=== PATIENT | female | born 1960 | race Caucasian/White ===

== ENCOUNTER → 2021-09-30 | Outpatient (CLI) | payer MEDICARE, OTHER ==
--- NOTE | 2021-09-30 06:44 | MR ---
EXAMINATION TYPE: MR shoulder RT wo con DATE OF EXAM: 09/30/2021 COMPARISON: None. HISTORY: Pain in right shoulder , Osteoarthritis TECHNIQUE: Multiplanar, multisequence imaging of the right shoulder is performed without contrast. FINDINGS: Rotator Cuff: Some increased signal in the distal supraspinatus and infraspinatus tendons. Short segm ent tearing at articular surface supraspinatus tendon measures 6 mm AP diameter sagittal image 21 and anterior fibers of the infraspinatus tendon measures 5 mm AP diameter sagittal image 22. Adjacent jean bchondral cystic change in the humeral head. Subscapularis tendon is thickened with increased signal. Rotator cuff shows mild/moderate atrophy of the subscapularis muscle bulk. Acromioclavicular Joint: Moderate to severe narrowing. Moderate capsular hypertrophy. Preservation of underlying fat plane. Slight type II downsloping acromion with possible underlying fat coronal image 14 and sagittal image 17. Glenohumeral Joint: Small to moderate joint effusion with mild/moderate narrowing. No significant spu rring Labrum: The superior labrum has increased signal on coronal image 11, degenerative tearing is present . Biceps Tendon: The long head of biceps is in normal location within bicipital groove. Long segment in creased vertical signal along the extracapsular portion is present. Bone marrow signal: Hill-Sachs type deformity with loss of spherical shape. There is subchondral cyst ic change throughout the humeral head. Other: No additional significant abnormality is appreciated. IMPRESSION: 1. Tendinosis and partial tearing of the supraspinatus and infraspinatus tendons. Tendinopathy of the subscapularis with muscular atrophy. 2. Type II downsloping acromion with underlying impingement suspected, correlate clinically. 3. Moderate to borderline severe degenerative changes as detailed above. Degenerative tearing superio r labrum. Long segment tendinosis of the biceps tendon.
== END | disposition home or self-care (01) ==
LOC: RADMRIMAIN 05:48
PROVIDERS: ATTEND Orthopaedic Surgery
DX: M75.111 Incomplete rotator cuff tear or rupture of right shoulder, not specified as traumatic (principal); M62.511 Muscle wasting and atrophy, not elsewhere classified, right shoulder; M75.81 Other shoulder lesions, right shoulder; M19.011 Primary osteoarthritis, right shoulder

== ENCOUNTER → 2021-10-06 | Outpatient (CLI) | payer MEDICARE, OTHER ==
--- NOTE | 2021-10-10 08:59 | MM ---
Reason for exam: screening (asymptomatic). Last mammogram was performed 3 years and 1 month ago. History: Patient is postmenopausal and history of other cancer. Family history of breast cancer in sister at age 64. Physical Findings: A clinical breast exam by your physician is recommended on an annual basis and results should be correlated with mammographic findings. MG 3D Screening Mammo W/Cad Bilateral CC and MLO view(s) were taken. Prior study comparison: September 19, 2018, mammogram, performed at [facility]. There are scattered fibroglandular densities. There is chronic nodularity bilaterally. Benign bilateral oil cyst calcifications. No significant changes when compared with prior studies. ASSESSMENT: Negative, BI-RAD 1 RECOMMENDATION: Routine screening mammogram of both breasts in 1 year.
== END | disposition home or self-care (01) ==
LOC: RADMAMWWP 08:50
PROVIDERS: ATTEND Family Medicine
DX: Z12.31 Encounter for screening mammogram for malignant neoplasm of breast (principal); Z78.0 Asymptomatic menopausal state; Z80.3 Family history of malignant neoplasm of breast
CPT/HCPCS: 77063; 77067

== ENCOUNTER → 2021-10-18 | Outpatient (CLI) | payer MEDICARE, OTHER ==
--- NOTE | 2021-10-18 13:45 | BD ---
EXAMINATION TYPE: Axial Bone Density DATE OF EXAM: 10/18/2021 COMPARISON: NONE CLINICAL HISTORY: asymptomatic menopausal Z 78.0 Height: 5'1 Weight: 154 FRAX RISK QUESTIONS: Secondary Osteoporosis: 3. Menopause before 45: y Current Tobacco Use: y RISK FACTORS HISTORY OF: Diet low in dairy products/other sources of calcium: y Postmenopausal woman: y MEDICATIONS: Additional Medications: back pain, reflux med, anxiety, pain meds Additional History: skin cancer, 2019 EXAM MEASUREMENTS: Bone mineral densitometry was performed using the [employer] System. Bone mineral density as measured about the Lumbar spine is: ----- L1-L4(G/cm2): 0.974 T Score Values are as follows: ----- L2:-1.8 ----- L3: -1.3 ----- L4: -2.0 ----- L1-L4: -1.7 Bone mineral density about the R hip (g/cm2): 0.793 Bone mineral density about the L hip (g/cm2): 0.797 T Score values are as follows: -----R Neck: -1.8 -----L Neck: -1.7 -----R Total: -1.2 -----L Total: -1.2 IMPRESSION: Osteopenia (T Score between -2.5 and -1). There is slightly increased risk of fracture and the patient may be considered for treatment. Re-Screen 2-5 years. NOTE: T-SCORE=SD OF THE YOUNG ADULT MEAN.
== END | disposition home or self-care (01) ==
LOC: RADBDWWP 10:16
PROVIDERS: ATTEND Family Medicine
DX: M85.89 Other specified disorders of bone density and structure, multiple sites (principal); Z78.0 Asymptomatic menopausal state
CPT/HCPCS: 77080

== ENCOUNTER → 2021-10-20 | Outpatient (CLI) | payer MEDICARE, OTHER ==
--- NOTE | 2021-10-20 10:56 | CTL ---
EXAMINATION TYPE: CT Low Dose Lung DATE OF EXAM ORDERED: 10/20/2021 HISTORY: Long-term tobacco use. Lung cancer screening CT DLP: 92.[address] CTDI: 2.7 mGy Automated exposure control for dose reduction was used. SCREENING VISIT: Baseline COMPARISON: None TECHNIQUE: Low dose computed tomography scan was performed through the chest at 1 mm thick sections a nd reconstructed images in multiple planes at 1 mm and [address] DIAGNOSTIC QUALITY: Satisfactory FINDINGS: LUNG NODULES: Present, detailed below: There is 3 mm peripheral right lower lobe nodule axial image 168. Scattered small nodules are present . There is 9.0 x 6.9 mm peripheral left lower lobe nodule axial image 211. There is 5.7 x 3.3 mm left upper lobe nodule axial image 112 LUNGS: COPD: Severity: [id number] Fibrosis: Severity: None Lymph nodes: No greater than 1 cm lymph nodes Other findings: None RIGHT PLEURAL SPACE: Effusion: None Calcification: None Thickening: None Pneumothorax: None LEFT PLEURAL SPACE: Effusion: None Calcification: None Thickening: None Pneumothorax: None HEART: Heart Size: Normal Coronary Calcification: Mild Pericardial Effusion: None OTHER FINDINGS: Upper abdomen: None Bony thorax: Slight scoliotic curvature Supraclavicular region: None Other: None IMPRESSION: [id number] emphysematous changes with scattered small nodules up to 9.5 x 6.[address] LUNG RAD AND CT CHEST RECOMMENDATION: Lung-Rad 4A Suspicious: Follow-up 3 month LDCT or PET/CT may be used when there is a > 8 mm solid component. S Modifier (other clinically significant findings): None
== END | disposition home or self-care (01) ==
LOC: RADCTMAIN 09:09
PROVIDERS: ATTEND Family Medicine
DX: Z12.2 Encounter for screening for malignant neoplasm of respiratory organs (principal); J43.9 Emphysema, unspecified; R91.8 Other nonspecific abnormal finding of lung field; Z87.891 Personal history of nicotine dependence
CPT/HCPCS: 71271

== ENCOUNTER 2021-11-22 07:53 | Day surgery (SDC) | payer MEDICARE, OTHER ==
[2021-11-18 11:24] VITALS: BMI 27.4
[~2021-11-22 07:53] MED LIST: LACTATED RINGERS 1,000 ML IV SCH
[2021-11-22 08:21] VITALS: TEMP 96.2
[2021-11-22] MEDS ORDERED: PROPOFOL 10 MG/ML 20 ML VIAL IV ONE (09:36)
--- NOTE | 2021-11-22 09:49 | P.PCN ---
Date of Procedure: 11/22/21 Procedure(s) Performed: BRIEF HISTORY: Patient is a 61-year-old pleasant white female scheduled for an elective colonoscopy as a part of screening for colorectal neoplasia. PROCEDURE PERFORMED: Colonoscopy. PREOPERATIVE DIAGNOSIS: Screening for colon cancer. IV sedation per Anesthesia. PROCEDURE: After informed consent was obtained, the patient, was brought into the endoscopy unit. IV sedation was administered by Anesthesia under continuous monitoring. Digital rectal examination was normal. Initially the Olympus CF-160 flexible video colonoscope was then inserted in the rectum, gradually advanced into the cecum without any difficulty. Careful examination was performed as the scope was gradually being withdrawn. Ileocecal valve and the appendiceal orifice were visualized and appeared normal. Prep was excellent. Mucosa of the cecum, ascending colon, transverse colon, descending colon, sigmoid colon, and rectum appeared normal. Retroflexion was performed in the rectum and all internal hemorrhoids were seen. The patient tolerated the procedure well. IMPRESSION: Normal-appearing colon from rectum to cecum with no evidence of colorectal neoplasia. Small internal hemorrhoids. RECOMMENDATIONS: Findings of this examination were discussed with the patient well as her family. She was advised to have a repeat screening colonoscopy in 10 years..
[2021-11-22 10:17] VITALS: BP 136/81; PULSE 62; RESP 18
== END 2021-11-22 10:48 | disposition home or self-care (01) ==
LOC: ORWHC2ENDO 07:53
PROVIDERS: ATTEND Internal Medicine Gastroenterology
DX: Z12.11 Encounter for screening for malignant neoplasm of colon (principal); E78.5 Hyperlipidemia, unspecified; K21.9 Gastro-esophageal reflux disease without esophagitis; F41.9 Anxiety disorder, unspecified
CPT/HCPCS: G0121; J2704

== ENCOUNTER 2022-03-04 18:27 | Emergency (ER) | payer MEDICARE, OTHER ==
[2022-03-04 18:45] VITALS: RESP 16; TEMP 98.2
--- NOTE | 2022-03-04 20:11 | ED ---
Upper Extremity HPI - General Chief Complaint: Extremity Injury, Upper Stated Complaint: arm pain/swelling Time Seen by Provider: 03/04/22 19:23 Source: patient Mode of arrival: ambulatory Limitations: no limitations - History of Present Illness Initial Comments: Patient is a 61-year-old female presents to the emergency room with complaints of right upper extremity pain ongoing for 3 days and symptoms are worsening. She reports that she was doing yard work earlier this week and she started to have some mild shoulder discomfort to her right shoulder which is not uncommon for her consequently she stopped doing yard work for 2 days. When she began doing yard work again and later in the day developed pain to her right upper extremity. She reports waking up with bruising and some swelling to her bicep region that is worsening. She has full range of motion but avoids bicep range of motion due to tenderness. She has a history of right partial upper rotator tough distal tear in which she is participating in physical therapy. She complains of some chronic neuropathy/radiculopathy from her shoulder that seems to have worsened since her swelling and bruising occurred to her bicep region. She denies any popping or locking of the joint. She denies any other wounds, trauma to the region, fevers chills overt numbness or tingling. She has a past medical history significant for skin cancer and hyperlipidemia. She denies any other complaints or concerns. - Related Data Home Medications Medication Instructions Recorded Confirmed Cholecalciferol [Vitamin D3 (25 25 mcg PO DAILY 11/18/21 03/04/22 Mcg = 1000 Iu)] Omeprazole [PriLOSEC] 40 mg PO DAILY 11/18/21 03/04/22 Pravastatin Sodium [Pravachol] 40 mg PO HS 11/18/21 03/04/22 Sertraline [Zoloft] 50 mg PO DAILY 11/18/21 03/04/22 Alendronate Sodium 70 mg PO Q7D 03/04/22 03/04/22 Allergies Allergy/AdvReac Type Severity Reaction Status Date / Time No Known Allergies Allergy Verified 03/04/22 18:45 Review of Systems ROS Statement: Those systems with pertinent positive or pertinent negative responses have been documented in the HPI. ROS Other: All systems not noted in ROS Statement are negative. Past Medical History Past Medical History: Cancer, Hyperlipidemia Additional Past Medical History / Comment(s): chronic back pain, hx of skin cancer History of Any Multi-Drug Resistant Organisms: None Reported Past Surgical History: Appendectomy, Hysterectomy, Orthopedic Surgery Additional Past Surgical History / Comment(s): right knee, right carpal tunnel Past Psychological History: No Psychological Hx Reported Smoking Status: Current every day smoker Past Alcohol Use History: None Reported Past Drug Use History: None Reported General Exam Limitations: no limitations General appearance: alert, in no apparent distress Head exam: Present: atraumatic, normocephalic, normal inspection Eye exam: Present: normal appearance, PERRL, EOMI. Absent: scleral icterus, conjunctival injection, periorbital swelling ENT exam: Present: normal exam, mucous membranes moist Neck exam: Present: normal inspection. Absent: tenderness, meningismus, lymphadenopathy Respiratory exam: Absent: respiratory distress, accessory muscle use Right Shoulder Exam: Present: normal inspection, full ROM Upper Arm exam: Present: full ROM (Pain with ROM but full ROM completed), tenderness, swelling, ecchymosis Elbow exam: Present: normal inspection Forearm Wrist exam: Present: normal inspection Hand Wrist exam: Present: normal inspection Vascular: Absent: vascular compromise Neurological exam: Present: alert, oriented X3, CN II-XII intact Psychiatric exam: Present: normal affect, normal mood Skin exam: Present: other (Ecchymosis to right bicep ) Course Vital Signs 03/04/22 18:40 Temperature 98.2 F Pulse Rate 79 Respiratory 16 Rate O2 Sat by Pulse 98 Oximetry Medical Decision Making - Medical Decision Making In the setting of bruising and swelling will check ultrasound. No trauma to joint. Will defer x-ray at this time. Range of motion painful but intact. Ultrasound with no masses, cysts or fluid collections noted. No indication for further testing in the emergency room at this time. Patient is established with an orthopedist. Patient has tramadol already at home for pain. She denies any analgesic needed at this time. Patient agreeable for discharge home with conservative use of limb and follow-up with her orthopedist and primary care provider. Case discussed with Dr. Wolfe. - Radiology Data Radiology results: report reviewed, image reviewed Ultrasound of the right upper extremity nonvascular showed no masses cysts or fluid collection. Disposition Clinical Impression: Sprain, bicep Disposition: HOME SELF-CARE Condition: Stable Instructions (If sedation given, give patient instructions): Musculoskeletal Pain (ED) Additional Instructions: Utilize right upper extremity conservatively. Rest, ice and elevate when possible. Please follow-up with your orthopedists. Utilize RAD prescribed tramadol as needed for pain along with ibuprofen or Tylenol [id number]. Please return to the Emergency Department if symptoms worsen or any other concerns. Is patient prescribed a controlled substance at d/c from ED?: No Referrals: Jessie Miller DO [Primary Care Provider] - 1-2 days Time of Disposition: 22:52
--- NOTE | 2022-03-04 21:43 | US ---
EXAMINATION TYPE: US extremity nonvasc RT DATE OF EXAM: 03/04/2022 COMPARISON: NONE CLINICAL HISTORY: pain swelling radiculopathy. No fluid collection or mass at patients area of concern. IMPRESSION: Exam fails to demonstrate any solid or cystic mass or fluid collection in the area of con cern on the left arm.
[2022-03-04 23:07] VITALS: PULSE 80
== END 2022-03-04 23:08 | disposition home or self-care (01) ==
LOC: EC 18:27
DX: S43.401A Unspecified sprain of right shoulder joint, initial encounter (principal); E78.5 Hyperlipidemia, unspecified; F17.200 Nicotine dependence, unspecified, uncomplicated; Z79.899 Other long term (current) drug therapy; X58.XXXA Exposure to other specified factors, initial encounter
CPT/HCPCS: 99283

== ENCOUNTER → 2022-12-08 | Outpatient (CLI) | payer MEDICARE, OTHER ==
--- NOTE | 2022-12-08 14:43 | CT ---
EXAMINATION TYPE: CT chest w con DATE OF EXAM: 12/08/2022 COMPARISON: 01/27/2022 HISTORY: lung nodule CT DLP: 291.9 mGycm Automated exposure control for dose reduction was used. TECHNIQUE: CT scan of the chest is performed with IV Contrast, patient injected with 70 mL of Isovue 300. MIP I mages are created on CT scanner and reviewed. 3D reconstructed images are created on an independent w orkstation and reviewed. FINDINGS: The right upper lobe pulmonary nodule seen in the prior study has resolved. The left upper lobe pulmo nary nodule size. The groundglass nodule in the right lung lobe is stable. 9 mm nodule in the left lower lobe is stable . No new or suspicious nodules are seen. There is no airspace consolidation or abnormal interstitial density. There is no pleural effusion or pneumothorax. The great vessels the chest are normal. There is a 15 mm precarinal lymph node which was seen previously and is slightly larger in size. It i s borderline in size. There is no axillary or hilar lymphadenopathy. Limited scanning the upper abdomen reveals no gross abnormality. The bony thorax is intact. IMPRESSION: 1. Stable 9 mm nodule in the left lower lobe and stable small groundglass nodule in the right lower l obe. 2. Borderline enlarged precarinal lymph node slightly more prominent in size compared to previous. 3. No acute cardiopulmonary disease. 4. 4-6 month follow-up CT is recommended to reassess the mediastinal lymph node.
== END | disposition home or self-care (01) ==
LOC: RADCTMAIN 11:39
PROVIDERS: ATTEND Family Medicine
DX: R91.1 Solitary pulmonary nodule (principal)
CPT/HCPCS: 71260; Q9967

== ENCOUNTER → 2022-12-28 | Outpatient (CLI) | payer MEDICARE, OTHER ==
--- NOTE | 2022-12-29 16:11 | MM ---
Reason for Exam: Screening (asymptomatic). Last mammogram was performed 1 year(s) and 3 month(s) ago. Patient History: Menarche at age 12. First Full-Term at age 17. Left ovary removed at age 18. Right ovary removed at age 15. Hysterectomy at age 18. Postmenopausal. Other cancer. Sister had breast cancer, age 64. Risk Values: Sarah 5 year model risk: 2.9%. NCI Lifetime model risk: 12.1%. Prior Study Comparison: 09/19/2018 Screening Mammogram, [facility]. 10/06/2021 Bilateral Screening Mammogram, [facility]. Tissue Density: There are scattered fibroglandular densities. Findings: Analyzed By CAD. Pattern appears symmetrical and stable. Benign spherical calcifications are present. Chronic nodularity is present and appears stable. No suspicious groups of microcalcifications, spiculated or lobular masses, architectural distortion or other secondary signs of malignancy are mammographically apparent. Overall Assessment: Benign, BI-RAD 2 Management: Screening Mammogram of both breasts in 1 year. A negative mammogram report should not preclude additional follow up of suspicious palpable abnormalities. Patient should continue monthly self breast exam. A clinical breast exam by your physician is recommended on an annual basis and results should be correlated with mammographic findings. Electronically signed and approved by: Henry Ramírez D.O. Radiologis
== END | disposition home or self-care (01) ==
LOC: RADMAMWWP 09:08
PROVIDERS: ATTEND Family Medicine
DX: Z12.31 Encounter for screening mammogram for malignant neoplasm of breast (principal); Z78.0 Asymptomatic menopausal state; Z80.3 Family history of malignant neoplasm of breast
CPT/HCPCS: 77063; 77067

== ENCOUNTER → 2023-04-18 | Outpatient (CLI) | payer MEDICARE, OTHER ==
--- NOTE | 2023-04-18 11:42 | CT ---
EXAMINATION TYPE: CT chest w con DATE OF EXAM: 04/18/2023 COMPARISON: 12/08/[address] 10/20/2021 HISTORY: Solitary pulmonary nodule CT DLP: 266.40 mGycm Automated exposure control for dose reduction was used. CONTRAST: CT scan of the chest is performed with IV Contrast, patient injected with 100 mL of Isovue 300. FINDINGS: LUNGS: Stable 5 mm pulmonary nodule left upper lobe image 19 sequence 4. Stable 4 mm nodular density left upper lobe image 22 sequence 4. Stable 8 mm pulmonary nodule left lower lobe image 43 sequence 4 . Linear parenchymal scarring left medial lung base. Stable 5.5 mm solid nodule right lower lobe imag e 34 sequence 4. Stable 2.5 mm pulmonary nodule right lower lobe image 36 sequence 4. MEDIASTINUM: There are no greater than 1 cm hilar or mediastinal lymph nodes. No pericardial effusi on is seen. Thoracic aorta is of normal caliber. The heart is not enlarged. UPPER ABDOMEN: No significant abnormality appreciated. OTHER: No additional significant abnormality is seen. IMPRESSION: 1. Stable pulmonary nodularity dating back to October 20, 2001. Follow-up study in one year is recom mended.
== END | disposition home or self-care (01) ==
LOC: RADCTMAIN 10:08
PROVIDERS: ATTEND Family Medicine
DX: R91.1 Solitary pulmonary nodule (principal)
CPT/HCPCS: 71260; Q9967

== ENCOUNTER → 2023-08-23 | Outpatient (CLI) | payer MEDICARE, OTHER ==
--- NOTE | 2023-08-23 14:28 | MR ---
EXAMINATION TYPE: MR lumbar spine wo con DATE OF EXAM: 08/23/2023 COMPARISON: None HISTORY: Pain in lower back and left Buttock and left Posterior Thigh CONTRAST: 0 mL intravenous Gadavist. TECHNIQUE: Multiplanar, multisequence images of the lumbar spine were acquired. FINDINGS: L5-S1: There is a grade 2 spondylolisthesis of L5 anteriorly on S1. Disc uncovering is present. No sp inal canal stenosis is present. Neural foramen and moderate left foraminal narrowing and moderate to severe right foraminal narrowing which may have compression of the exiting nerve root.. Correlate wit h right radicular symptoms, series 301 image 14. L4-L5: No significant disc bulge or disc herniation. No spinal canal stenosis. No foraminal stenosi s. L3-L4: No significant disc bulge or disc herniation. No spinal canal stenosis. No foraminal stenosi s. L2-L3: No significant disc bulge or disc herniation. No spinal canal stenosis. No foraminal stenosi s. L1-L2: There is central protrusion with mild anterior thecal sac compression. No AP spinal canal sten osis present. Neural foramen are patent. No spinal canal stenosis. No foraminal stenosis. T12-L1: No significant disc bulge or disc herniation. No spinal canal stenosis. No foraminal stenos is. Neural foramen are patent.. Cord terminates at the L1 level. IMPRESSION: 1. Grade 2 spondylolisthesis of L5 anteriorly on S1. 2. Severe right foraminal stenosis with suspected nerve root compression within the foramen. 3. Mild central disc protrusion L1-2 without stenosis.
== END | disposition home or self-care (01) ==
LOC: RADMRIMAIN 08:00
PROVIDERS: ATTEND Physical Medicine & Rehabilitation
DX: M47.27 Other spondylosis with radiculopathy, lumbosacral region (principal); M43.17 Spondylolisthesis, lumbosacral region; M51.26 Other intervertebral disc displacement, lumbar region; M99.73 Connective tissue and disc stenosis of intervertebral foramina of lumbar region
CPT/HCPCS: 72148

== ENCOUNTER 2024-01-11 18:51 | Emergency (ER) | payer MEDICARE, OTHER ==
--- NOTE | 2024-01-11 20:07 | ED ---
General Adult HPI - General Chief complaint: Extremity Injury, Lower Stated complaint: Bilat leg injury Time Seen by Provider: 01/11/24 19:50 Source: patient Mode of arrival: ambulatory Limitations: no limitations - History of Present Illness Initial comments: 63-year-old female presenting to the ED with a chief complaint of bilateral leg injury. Patient reports that she was balancing to wooden planks when the structure she put them on collapsed causing the planks to fall directly onto her bilateral lower legs. Since then, reports pain especially with ambulation of the right lower leg. However, reports that she was still able to ambulate. Reports that she would like to make sure they are not broken. No other injuries at this time. No other complaints. - Related Data Home Medications Medication Instructions Recorded Confirmed Cholecalciferol [Vitamin D3 (25 25 mcg PO DAILY 11/18/21 03/04/22 Mcg = 1000 Iu)] Omeprazole [PriLOSEC] 40 mg PO DAILY 11/18/21 03/04/22 Pravastatin Sodium [Pravachol] 40 mg PO HS 11/18/21 03/04/22 Sertraline [Zoloft] 50 mg PO DAILY 11/18/21 03/04/22 Alendronate Sodium 70 mg PO Q7D 03/04/22 03/04/22 Allergies Allergy/AdvReac Type Severity Reaction Status Date / Time No Known Allergies Allergy Verified 01/11/24 19:15 Review of Systems ROS Statement: Those systems with pertinent positive or pertinent negative responses have been documented in the HPI. ROS Other: All systems not noted in ROS Statement are negative. Past Medical History Past Medical History: Cancer, Hyperlipidemia Additional Past Medical History / Comment(s): chronic back pain, hx of skin cancer History of Any Multi-Drug Resistant Organisms: None Reported Past Surgical History: Appendectomy, Hysterectomy, Orthopedic Surgery Additional Past Surgical History / Comment(s): right knee, right carpal tunnel Past Psychological History: No Psychological Hx Reported Smoking Status: Current every day smoker Past Alcohol Use History: None Reported Past Drug Use History: None Reported General Exam Limitations: no limitations General appearance: alert, in no apparent distress Head exam: Present: atraumatic, normocephalic Eye exam: Present: normal appearance Neck exam: Present: normal inspection Respiratory exam: Present: normal lung sounds bilaterally Cardiovascular Exam: Present: regular rate GI/Abdominal exam: Present: soft. Absent: distended, tenderness, guarding, rebound, rigid Extremities exam: Present: other (Examination of bilateral lower extremities shows tenderness to palpation of the lower legs bilaterally, worse of the right. However, no crepitus, step-off, or obvious deformity. DP/PT pulses intact bilaterally.) Neurological exam: Present: alert, oriented X3 Skin exam: Present: warm, dry Course Vital Signs 01/11/24 01/11/24 19:13 23:31 Temperature 98.5 F 98.8 F Pulse Rate 79 65 Respiratory 18 19 Rate Blood Pressure 157/82 165/90 O2 Sat by Pulse 97 96 Oximetry Medical Decision Making - Medical Decision Making Was pt. sent in by a medical professional or institution (, PA, MANAGER CULTURE, urgent care, hospital, or correction...) When possible be specific @ -No Did you speak to anyone other than the patient for history (EMS, parent, family, police, friend...)? What history was obtained from this source @ -No Did you review nursing and triage notes (agree or disagree)? Why? @ -I reviewed and agree with nursing and triage notes Were old charts reviewed (outside hosp., previous admission, EMS record, old EKG, old radiological studies, urgent care reports/EKG's, correction records)? Report findings @ -No old charts were reviewed Differential Diagnosis (chest pain, altered mental status, abdominal pain women, abdominal pain men, vaginal bleeding, weakness, fever, dyspnea, syncope, headache, dizziness, GI bleed, back pain, seizure, CVA, palpatations, mental health, musculoskeletal)? @ -Differential Musculoskeletal Muscular strain, contusion, ligament sprain, fracture, arthritis, septic arthritis, bursitis, cellulitis, muscle spasm, nerve compression, DVT, arterial occlusion, herpes zoster, electrolyte abnormality, tumor.... This is not meant to be in all inclusive list EKG interpreted by me (3pts min.). @ -None X-rays interpreted by me (1pt min.). @ -X-rays of the tib-fib interpreted me which revealed no evidence of acute finding. CT interpreted by me (1pt min.). @ -None done U/S interpreted by me (1pt. min.). @ -None done What testing was considered but not performed or refused? (CT, X-rays, U/S, labs)? Why? @ -None What meds were considered but not given or refused? Why? @ -Patient was offered analgesia here in the ED however declined. Did you discuss the management of the patient with other professionals (professionals i.e. , PA, MANAGER CULTURE, lab, RT, psych nurse, social science research assistant, commercial installer, teacher, accounting officer, rn case mgr)? Give summary @ -No Was smoking cessation discussed for >3mins.? @ -No Was critical care preformed (if so, how long)? @ -No Were there social determinants of health that impacted care today? How? (Homelessness, low income, unemployed, alcoholism, drug addiction, transp ortation, low edu. Level, literacy, decrease access to med. care, prison, rehab)? @ -No Was there de-escalation of care discussed even if they declined (Discuss DNR or withdrawal of care, Hospice)? DNR status @ -No What co-morbidities impacted this encounter? (DM, HTN, Smoking, COPD, CAD, Cancer, CVA, ARF, Chemo, Hep., AIDS, mental health diagnosis, sleep apnea, morbid obesity)? @ -None Was patient admitted / discharged? Hospital course, mention meds given and route, prescriptions, significant lab abnormalities, going to OR and other pertinent info. @ -Discharge 63-year-old female presenting to the ED with complaints of bilateral leg pain after two 2x6s fell onto her bilateral legs from table height. Concerned that she may have caused fracture to her legs. X-ray reviewed which revealed no evidence of fracture. On examination, minimal ecchymosis of her bilateral anterior lower legs. Able to ambulate without significant difficulty. Discharged home in stable condition with instructions to follow-up with her PCP. Discussed return precaution patient verbalized agreement. Undiagnosed new problem with uncertain prognosis? @ -No Drug Therapy requiring intensive monitoring for toxicity (Heparin, Nitro, Insulin, Cardizem)? @ -No Were any procedures done? @ -No Diagnosis/symptom? @ -Leg injury Acute, or Chronic, or Acute on Chronic? @ -Acute Uncomplicated (without systemic symptoms) or Complicated (systemic symptoms)? @ -Uncomplicated Side effects of treatment? @ -No Exacerbation, Progression, or Severe Exacerbation? @ -No Poses a threat to life or bodily function? How? (Chest pain, [place], [place], pneumonia, PE, COPD, DKA, ARF, appy, cholecystitis, CVA, Diverticulitis, Homicidal, Suicidal, threat to staff... and all critical care pts) @ -No Disposition Clinical Impression: Bilateral leg pain Disposition: HOME SELF-CARE Condition: Good Additional Instructions: Please return to the Emergency Department if symptoms worsen or any other concerns. Please take [id number] medications as needed for pain. Follow- up with your primary care provider. Is patient prescribed a controlled substance at d/c from ED?: No Referrals: Jessie Miller DO [Primary Care Provider] - 1-2 days Time of Disposition: 23:32
--- NOTE | 2024-01-11 23:06 | XR ---
EXAMINATION TYPE: XR tibia fibula bilateral DATE OF EXAM: 01/11/2024 8:22 PM CLINICAL INDICATION:Female, 63 years old with history of s/p wooden planks falling onto diaz legs; H COMPARISON: None TECHNIQUE: XR tibia fibula bilateral; tibia/fibula was examined in AP and lateral projections. FINDINGS: No evidence of acute fracture or dislocation. Small bilateral plantar and dorsal calcaneal spurs. IMPRESSION: No evidence of acute fracture.
[2024-01-12 00:12] VITALS: BP 165/90; PULSE 65; RESP 19; TEMP 98.8
== END 2024-01-11 23:38 | disposition home or self-care (01) ==
LOC: EC 18:51
DX: S89.92XA Unspecified injury of left lower leg, initial encounter (principal); S89.91XA Unspecified injury of right lower leg, initial encounter; F17.200 Nicotine dependence, unspecified, uncomplicated; W01.0XXA Fall on same level from slipping, tripping and stumbling without subsequent striking against object, initial encounter
CPT/HCPCS: 99283

== ENCOUNTER → 2024-02-15 | Outpatient (CLI) | payer MEDICARE, OTHER ==
--- NOTE | 2024-02-15 22:59 | MR ---
EXAMINATION TYPE: MR shoulder RT wo con DATE OF EXAM: 02/15/2024 COMPARISON: MRI right shoulder September 30, 2021 HISTORY: Right shoulder pain with difficulty raising arm overhead for 1 to 2 years TECHNIQUE: Multiplanar, multisequence imaging of the right shoulder is performed without contrast. FINDINGS: Rotator Cuff: Now full-thickness retracted tear of the supraspinatus tendon with stump retraction michael ntified coronal image 14. Increased signal along the infraspinatus tendon with surrounding fluid maribel ins present. Heterogeneous signal in the subscapularis tendon with surrounding fluid is redemonstrate d. Rotator cuff shows stable mild atrophy of the subscapularis muscle bulk. Acromioclavicular Joint: Moderate to severe narrowing redemonstrated. Moderate capsular hypertrophy r edemonstrated. Preservation of underlying fat plane. Subchondral cystic change at this level redemons trated. Glenohumeral Joint: Moderate sized joint effusion with narrowing redemonstrated. No significant spurr ing Labrum: The superior labrum has blunted appearance. Biceps Tendon: The long head of biceps is now not identified normal location within bicipital groove. Biceps anchor at labrum not seen on current study. Bone marrow signal: Hill-Sachs type deformity with loss of spherical shape is redemonstrated. There i s subchondral cystic change throughout the anterolateral humeral head redemonstrated. Other: No additional significant abnormality is appreciated. IMPRESSION: 1. Progression to full-thickness retracted tear of the supraspinatus tendon. 2. Persistent tendinosis/partial tearing of the infraspinatus and subscapularis tendons. 3. Tear of the superior labrum redemonstrated. There is new dislocated tear of the long head of bicep s tendon noted.
== END | disposition home or self-care (01) ==
LOC: RADMRIMAIN 08:56
PROVIDERS: ATTEND Orthopaedic Surgery
DX: M19.011 Primary osteoarthritis, right shoulder (principal); S46.011A Strain of muscle(s) and tendon(s) of the rotator cuff of right shoulder, initial encounter; M67.813 Other specified disorders of tendon, right shoulder

== ENCOUNTER → 2024-02-15 | Outpatient (CLI) | payer MEDICARE, OTHER ==
--- NOTE | 2024-02-15 18:53 | MM ---
Reason for Exam: Screening (asymptomatic). Last mammogram was performed 1 year(s) and 2 month(s) ago. Patient History: Menarche at age 12. First Full-Term at age 17. Left ovary removed at age 18. Right ovary removed at age 15. Hysterectomy at age 18. Postmenopausal. Sister had breast cancer, age 64. Risk Values: Sarah 5 year model risk: 3.0%. NCI Lifetime model risk: 11.8%. Prior Study Comparison: 09/19/2018 Screening Mammogram, [facility]. 10/06/2021 Bilateral Screening Mammogram, [facility]. 12/28/2022 Bilateral MG 3D screening mammo w/cad, [facility]. Tissue Density: There are scattered areas of fibroglandular density. Findings: Analyzed By CAD. Chronic nodularity laterally in both breasts. There is no suspicious group of microcalcifications or new suspicious mass in either breast. Overall Assessment: Benign, BI-RAD 2 Management: Screening Mammogram of both breasts in 1 year. . Patient should continue monthly self-breast exams. A clinical breast exam by your physician is recommended on an annual basis. This exam should not preclude additional follow-up of suspicious palpable abnormalities. Note on Sarah scores and lifetime risk: 1. A Sarah score greater than 3% is considered moderate risk. If this is the case, consider specialist referral to assess eligibility for a risk reducing agent. 2. If overall lifetime risk for the development of breast cancer is 20% or higher, the patient may qualify for future screening with alternating mammogram and breast MRI. Electronically signed and approved by: Geraldine Briceño M.D. Radiologist
== END | disposition home or self-care (01) ==
LOC: RADMAMWWP 08:35
PROVIDERS: ATTEND Family Medicine
DX: Z12.31 Encounter for screening mammogram for malignant neoplasm of breast (principal); Z78.0 Asymptomatic menopausal state; Z80.3 Family history of malignant neoplasm of breast
CPT/HCPCS: 77063; 77067

== ENCOUNTER 2024-04-14 03:03 | Emergency (ER) | payer MEDICARE, OTHER ==
[2024-04-14 03:11] VITALS: RESP 16; TEMP 97.8
--- NOTE | 2024-04-14 04:40 | CT ---
EXAM: CT Head Without Intravenous Contrast CLINICAL HISTORY: ITS.REASON CT Reason: syncope TECHNIQUE: Axial computed tomography images of the head/brain without intravenous contrast. CTDI is 49.1 mGy and DLP is 1005 mGy-cm. This CT exam was performed using one or more of the following dose reduction techniques: automated exposure control, adjustment of the mA and/or kV according to patient size, and/or use of iterative reconstruction technique. COMPARISON: No relevant prior studies available. FINDINGS: Brain: Age-related cerebral volume loss. Periventricular and subcortical white matter hypoattenuation, consistent with chronic microangiopathy. No acute intracranial hemorrhage. No midline shift or mass effect. Ventricles: Unremarkable. No ventriculomegaly. Bones/joints: Unremarkable. No acute fracture. Soft tissues: Unremarkable. Sinuses: Unremarkable as visualized. No acute sinusitis. Mastoid air cells: Unremarkable as visualized. No mastoid effusion. IMPRESSION: No acute intracranial hemorrhage. No midline shift or mass effect. EXAM: CT Cervical Spine Without Intravenous Contrast CLINICAL HISTORY: ITS.REASON CT Reason: syncope TECHNIQUE: Axial computed tomography images of the cervical spine without intravenous contrast. CTDI is 11.2 mGy and DLP is 299.8 mGy-cm. This CT exam was performed using one or more of the following dose reduction techniques: automated exposure control, adjustment of the mA and/or kV according to patient size, and/or use of iterative reconstruction technique. COMPARISON: No relevant prior studies available. FINDINGS: The vertebral body heights are maintained. The craniocervical junction is intact. The atlanto-dens interval is maintained. The dens is intact. There is no spondylolisthesis. Multilevel cervical spondylosis and degenerative disc disease. Straightening of the cervical lordosis. The unenhanced neck soft tissues are grossly unremarkable. The visualized lung apices are grossly clear. IMPRESSION: No acute fracture or subluxation of the cervical spine.
[2024-04-14] MEDS: SODIUM CHLORIDE 0.9% 500 ML 500 ML IV STA (04:43)
[2024-04-14 04:47] LABS: Basophils # (A) 0.1 k/uL (0-0.2); Basophils % (A) 1 %; Eosinophils % (A) 1 %; HCT 40.6 % (34.0-46.0); HGB 13.5 gm/dL (11.4-16.0); Lymphocytes # (A) 0.5 k/uL (1.0-4.8); Lymphocytes % (A) 9 %; MCH 30.6 pg (25.0-35.0); MCHC 33.3 g/dL (31.0-37.0); MCV 91.9 fL (80.0-100.0); Mean Platelet Volume 9.2; Monocytes # (A) 0.5 k/uL (0-1.0); Monocytes % (A) 9 %; Neutrophils # (A) 4.3 k/uL (1.3-7.7); Neutrophils % (A) 79 %; Platelet Count 151 k/uL (150-450); RBC 4.42 m/uL (3.80-5.40); RDW 13.2 % (11.5-15.5); WBC 5.4 k/uL (3.8-10.6)
[2024-04-14 05:03] LABS: Partial Thromboplastin Time 25.4 sec (22.0-30.0); Prothrombin Time 10.6 sec (10.0-12.5)
[2024-04-14 05:06] VITALS: BP 156/80; PULSE 69
[2024-04-14 05:31] LABS: ALT 13 U/L (4-34); AST 20 U/L (14-36); African American GFR (CKD) 86 (>60 ml/min/1.73 sqM); Albumin 3.8 g/dL (3.5-5.0); Alkaline Phosphatase 67 U/L (38-126); Anion Gap 5 mmol/L; Blood Urea Nitrogen 12 mg/dL (7-17); Calcium 8.5 mg/dL (8.4-10.2); Carbon Dioxide 24 mmol/L (22-30); Chloride 108 mmol/L (98-107); Glucose 119 mg/dL (74-99); Non-African American GFR(CKD) 75 (>60 ml/min/1.73 sqM); Potassium 4.1 mmol/L (3.5-5.1); Sodium 137 mmol/L (137-145); Total Bilirubin 0.6 mg/dL (0.2-1.3)
--- NOTE | 2024-04-14 06:34 | ED ---
General Adult HPI - General Chief complaint: Syncope Stated complaint: Syncope and Collapse Time Seen by Provider: 04/14/24 03:34 Source: patient, EMS Mode of arrival: EMS Limitations: no limitations - History of Present Illness Initial comments: Nawaf is a pleasant 64-year-old female who came to the emergency department today via private vehicle for evaluation of pain and redness in her right upper extremity. Patient notes that she was recently treated with Levaquin for upper respiratory infection. She seemed to be doing better from that but 2 days ago developed some pain in her right arm. The pain acutely worsened yesterday and she noted some bruising. Patient has pain with any range of motion specifically flexion of the elbow. - Related Data Home Medications Medication Instructions Recorded Confirmed Cholecalciferol [Vitamin D3 (25 25 mcg PO DAILY 11/18/21 03/04/22 Mcg = 1000 Iu)] Omeprazole [PriLOSEC] 40 mg PO DAILY 11/18/21 03/04/22 Pravastatin Sodium [Pravachol] 40 mg PO HS 11/18/21 03/04/22 Sertraline [Zoloft] 50 mg PO DAILY 11/18/21 03/04/22 Alendronate Sodium 70 mg PO Q7D 03/04/22 03/04/22 Allergies Allergy/AdvReac Type Severity Reaction Status Date / Time No Known Allergies Allergy Verified 01/11/24 19:15 Review of Systems ROS Statement: Those systems with pertinent positive or pertinent negative responses have been documented in the HPI. ROS Other: All systems not noted in ROS Statement are negative. Past Medical History Past Medical History: Cancer, Hyperlipidemia Additional Past Medical History / Comment(s): chronic back pain, hx of skin cancer History of Any Multi-Drug Resistant Organisms: None Reported Past Surgical History: Appendectomy, Hysterectomy, Orthopedic Surgery Additional Past Surgical History / Comment(s): right knee, right carpal tunnel Past Psychological History: No Psychological Hx Reported Smoking Status: Current every day smoker Past Alcohol Use History: None Reported Past Drug Use History: None Reported General Exam - General Exam Comments Initial Comments: Physical Exam GENERAL: Patient is well-developed and well-nourished. Patient is nontoxic and well-hydrated and is in no distress. HENT: Normocephalic, Atraumatic. EYES: PERRL, EOMI PULMONARY: Unlabored respirations. CARDIOVASCULAR: RRR Warm and well perfused extremities ABDOMEN: Non-distended SKIN: There is bruising over the distal bicep just proximal to the elbow on the right arm : Deferred NEUROLOGIC: Alert and oriented Normal speech Normal gait MUSCULOSKELETAL: There is pain with palpation of the bicep and the distal bicep, normal range of motion but pain with any weightbearing PSYCHIATRIC: No SI/HI Limitations: no limitations Course Vital Signs 04/14/24 04/14/24 03:04 04:55 Temperature 97.8 F Pulse Rate 68 69 Respiratory 16 16 Rate Blood Pressure 161/84 156/80 O2 Sat by Pulse 94 L 93 L Oximetry EKG Findings - EKG Comments: EKG Findings:: Interpreted by me EKG obtained due to syncope EKG obtained at 4:55 AM rate is 70 rhythm is sinus with an incomplete right bundle branch block normal axis, [place] 162 QRS 101 QTc [address] elevations or depressions no evidence of ischemia or infarction Medical Decision Making - Medical Decision Making Was pt. sent in by a medical professional or institution (, PA, BUTTONHOLER, urgent care, hospital, or penitentiary...) When possible be specific @ -No Did you speak to anyone other than the patient for history (EMS, parent, family, police, friend...)? What history was obtained from this source @ -No Did you review nursing and triage notes (agree or disagree)? Why? @ -I reviewed and agree with nursing and triage notes Were old charts reviewed (outside hosp., previous admission, EMS record, old EKG, old radiological studies, urgent care reports/EKG's, penitentiary records)? Report findings @ -No old charts were reviewed Differential Diagnosis (chest pain, altered mental status, abdominal pain women, abdominal pain men, vaginal bleeding, weakness, fever, dyspnea, syncope, headache, dizziness, GI bleed, back pain, seizure, CVA, palpatations, mental health)? @ -Not applicable EKG interpreted by me (3pts min.). @ -As above X-rays interpreted by me (1pt min.). @ -None done CT interpreted by me (1pt min.). @ -None done U/S interpreted by me (1pt. min.). @ -None done What testing was considered but not performed or refused? (CT, X-rays, U/S, labs)? Why? @ -None What meds were considered but not given or refused? Why? @ -None Did you discuss the management of the patient with other professionals (professionals i.e. , PA, BUTTONHOLER, lab, RT, psych nurse, social work specialist, attacher, teacher, licensed mortgage loan officer, bottle caser)? Give summary @ -No Was smoking cessation discussed for >3mins.? @ -No Was critical care preformed (if so, how long)? @ -No Were there social determinants of health that impacted care today? How? (Homelessness, low income, unemployed, alcoholism, drug addiction, transportation, low edu. Level, literacy, decrease access to med. care, shelter, rehab)? @ -No Was there de-escalation of care discussed even if they declined (Discuss DNR or withdrawal of care, Hospice)? DNR status @ -No What co-morbidities impacted this encounter? (DM, HTN, Smoking, COPD, CAD, Cancer, CVA, ARF, Chemo, Hep., AIDS, mental health diagnosis, sleep apnea, morbi d obesity)? @ -None Was patient admitted / discharged? Hospital course, mention meds given and rout e, prescriptions, significant lab abnormalities, going to OR and other pertinent info. @ -Discharged Patient was seen and evaluated, history was obtained from the patient Physical exam with some bruising of the distal bicep atraumatic Doppler ultrasound was obtained there is no evidence of clot, labs are obtained there is no leukocytosis or evidence of infection. Given that the patient was recently on Levaquin I suspect that she has some tendinopathy possibly even mild rupture or muscle tear. I recommend supportive care and outpatient follow-up with orthopedics. Undiagnosed new problem with uncertain prognosis? @ -No Drug Therapy requiring intensive monitoring for toxicity (Heparin, Nitro, Insulin, Cardizem)? @ -No Were any procedures done? @ -No Diagnosis/symptom? @ -Tendinitis left arm Acute, or Chronic, or Acute on Chronic? @ -Default Uncomplicated (without systemic symptoms) or Complicated (systemic symptoms)? @ -Default Side effects of treatment? @ -No Exacerbation, Progression, or Severe Exacerbation? @ -No Poses a threat to life or bodily function? How? (Chest pain, [place], [place], pneumonia, PE, COPD, DKA, ARF, appy, cholecystitis, CVA, Diverticulitis, Homicidal, Suic idal, threat to staff... and all critical care pts) @ -No - Lab Data Result diagrams: 04/14/24 04:35 04/14/24 04:42 Lab Results 04/14/24 04/14/24 04/14/24 Range/Units 04:35 04:35 04:35 WBC 5.4 (3.8-10.6) k/uL RBC 4.42 (3.80-5.40) m/uL Hgb 13.5 (11.4-16.0) gm/dL Hct 40.6 (34.0-46.0) % MCV 91.9 (80.0-100.0) fL MCH 30.6 (25.0-35.0) pg MCHC 33.3 (31.0-37.0) g/dL RDW 13.2 (11.5-15.5) % Plt Count 151 (150-450) k/uL MPV 9.2 Neutrophils % 79 % Lymphocytes % 9 % Monocytes % 9 % Eosinophils % 1 % Basophils % 1 % Neutrophils # 4.3 (1.3-7.7) k/uL Lymphocytes # 0.5 L (1.0-4.8) k/uL Monocytes # 0.5 (0-1.0) k/uL Eosinophils # 0.0 (0-0.7) k/uL Basophils # 0.1 (0-0.2) k/uL PT 10.6 (10.0-12.5) sec INR 1.0 (<1.2) APTT 25.4 (22.0-30.0) sec Sodium (137-145) mmol/L Potassium (3.5-5.1) mmol/L Chloride (98-107) mmol/L Carbon Dioxide (22-30) mmol/L Anion Gap mmol/L BUN (7-17) mg/dL Creatinine (0.52-1.04) mg/dL Est GFR (CKD-EPI)AfAm (>60 ml/min/1.73 sqM) Est GFR (CKD-EPI)NonAf (>60 ml/min/1.73 sqM) Glucose (74-99) mg/dL Calcium (8.4-10.2) mg/dL Total Bilirubin (0.2-1.3) mg/dL AST (14-36) U/L ALT (4-34) U/L Alkaline Phosphatase (38-126) U/L Troponin I <0.012 (0.000-0.034) ng/mL Total Protein (6.3-8.2) g/dL Albumin (3.5-5.0) g/dL 04/14/24 Range/Units 04:42 WBC (3.8-10.6) k/uL RBC (3.80-5.40) m/uL Hgb (11.4-16.0) gm/dL Hct (34.0-46.0) % MCV (80.0-100.0) fL MCH (25.0-35.0) pg MCHC (31.0-37.0) g/dL RDW (11.5-15.5) % Plt Count (150-450) k/uL MPV Neutrophils % % Lymphocytes % % Monocytes % % Eosinophils % % Basophils % % Neutrophils # (1.3-7.7) k/uL Lymphocytes # (1.0-4.8) k/uL Monocytes # (0-1.0) k/uL Eosinophils # (0-0.7) k/uL Basophils # (0-0.2) k/uL PT (10.0-12.5) sec INR (<1.2) APTT (22.0-30.0) sec Sodium 137 (137-145) mmol/L Potassium 4.1 (3.5-5.1) mmol/L Chloride 108 H (98-107) mmol/L Carbon Dioxide 24 (22-30) mmol/L Anion Gap 5 mmol/L BUN 12 (7-17) mg/dL Creatinine 0.83 (0.52-1.04) mg/dL Est GFR (CKD-EPI)AfAm 86 (>60 ml/min/1.73 sqM) Est GFR (CKD-EPI)NonAf 75 (>60 ml/min/1.73 sqM) Glucose 119 H (74-99) mg/dL Calcium 8.5 (8.4-10.2) mg/dL Total Bilirubin 0.6 (0.2-1.3) mg/dL AST 20 (14-36) U/L ALT 13 (4-34) U/L Alkaline Phosphatase 67 (38-126) U/L Troponin I (0.000-0.034) ng/mL Total Protein 6.0 L (6.3-8.2) g/dL Albumin 3.8 (3.5-5.0) g/dL Disposition Clinical Impression: Tendonitis Disposition: HOME SELF-CARE Condition: Stable Is patient prescribed a controlled substance at d/c from ED?: No
[2024-04-14] MEDS ORDERED: MORPHINE SULFATE 4 MG/ML SYRINGE ONE (08:42)
[2024-04-14] MEDS ORDERED: ONDANSETRON 4 MG/2 ML VIAL ONE ×2 (08:42→18:15)
--- NOTE | 2024-04-14 09:35 | XR ---
EXAM: XR Chest, 1 View CLINICAL HISTORY: Reason: syncope TECHNIQUE: Frontal view of the chest. COMPARISON: No relevant prior studies available. FINDINGS: Lungs: Normal lung volumes. No evidence of airspace consolidation. No pulmonary edema. Pleural space: Unremarkable. No pneumothorax. Heart: Unremarkable. No cardiomegaly. Mediastinum: Unremarkable. Normal mediastinal contour. Bones/joints: Unremarkable. No acute fracture. IMPRESSION: There is no evidence of acute cardiopulmonary abnormality.
[2024-04-14] MEDS ORDERED: ACETAMINOPHEN TAB 325 MG TAB ONE (18:15)
[2024-04-14] MEDS ORDERED: HYDROcodone/APAP 5-325MG 1 EACH TAB ONE (23:52)
== END 2024-04-14 09:20 | disposition home or self-care (01) ==
LOC: EC 03:03 → 6NMEDSUR 08:20 → UNDOADMOB 08:20 → UNDODISOB 04-16 14:57
DX: R55 Syncope and collapse (principal); E78.5 Hyperlipidemia, unspecified; G89.29 Other chronic pain; M54.9 Dorsalgia, unspecified; F17.200 Nicotine dependence, unspecified, uncomplicated; Z85.828 Personal history of other malignant neoplasm of skin; Z79.899 Other long term (current) drug therapy
CPT/HCPCS: 36415; 70450; 71045; 72125; 80053; 84484; 85025; 85610; 85730; 93005; 93306; 99285

== ENCOUNTER 2024-09-12 09:31 | Emergency (ER) | payer MEDICARE, OTHER ==
[2024-09-12 09:47] VITALS: TEMP 97.7
--- NOTE | 2024-09-12 10:13 | ED ---
General Adult HPI - General Chief complaint: Back Pain/Injury Stated complaint: Back pain Time Seen by Provider: 09/12/24 10:07 Source: patient, RN notes reviewed Mode of arrival: ambulatory Limitations: physical limitation - History of Present Illness Initial comments: Patient is a 64-year-old female present to the emergency department with concerns with low back pain. This is a chronic problem for her. Patient states started bothering her again a couple of days ago. Patient states usually her doctor will give her Toradol or muscle relaxer. Patient does request these. Patient states she took a half of a Ultram at home. No loss of control of bowel or bladder. No loss of sensation. No weakness. - Related Data Home Medications Medication Instructions Recorded Confirmed Cholecalciferol [Vitamin D3 (25 25 mcg PO DAILY 11/18/21 03/04/22 Mcg = 1000 Iu)] Omeprazole [PriLOSEC] 40 mg PO DAILY 11/18/21 03/04/22 Pravastatin Sodium [Pravachol] 40 mg PO HS 11/18/21 03/04/22 Sertraline [Zoloft] 50 mg PO DAILY 11/18/21 03/04/22 Alendronate Sodium 70 mg PO Q7D 03/04/22 03/04/22 Allergies Allergy/AdvReac Type Severity Reaction Status Date / Time No Known Allergies Allergy Verified 09/12/24 09:43 Review of Systems ROS Statement: Those systems with pertinent positive or pertinent negative responses have been documented in the HPI. ROS Other: All systems not noted in ROS Statement are negative. Constitutional: Denies: fever Eyes: Denies: eye pain ENT: Denies: ear pain Cardiovascular: Denies: palpitations Gastrointestinal: Denies: abdominal pain Musculoskeletal: Reports: as per HPI Neurological: Denies: weakness, numbness Past Medical History Past Medical History: Cancer, Hyperlipidemia Additional Past Medical History / Comment(s): chronic back pain, hx of skin cancer History of Any Multi-Drug Resistant Organisms: None Reported Past Surgical History: Appendectomy, Hysterectomy, Orthopedic Surgery Additional Past Surgical History / Comment(s): right knee, right carpal tunnel Past Psychological History: No Psychological Hx Reported Smoking Status: Current every day smoker Past Alcohol Use History: None Reported Past Drug Use History: None Reported General Exam Limitations: physical limitation General appearance: alert, in no apparent distress Head exam: Present: normocephalic Eye exam: Present: normal appearance Neck exam: Present: normal inspection Respiratory exam: Present: normal lung sounds bilaterally Cardiovascular Exam: Present: regular rate, normal rhythm Expanded Peripheral pulses: 2+: Posterior Tibialis (R), Posterior Tibialis (L) GI/Abdominal exam: Present: soft. Absent: tenderness, pulsatile mass Extremities exam: Present: normal inspection Back exam: Present: normal inspection. Absent: tenderness Neurological exam: Present: alert. Absent: motor sensory deficit Psychiatric exam: Present: normal affect, normal mood Skin exam: Present: normal color Course Vital Signs 09/12/24 09:44 Temperature 97.7 F Pulse Rate 93 Respiratory 20 Rate Blood Pressure 162/86 O2 Sat by Pulse 97 Oximetry Medical Decision Making - Medical Decision Making Was pt. sent in by a medical professional or institution (, PA, ROPEWALK ROPE MAKER, urgent care, hospital, or usp...) When possible be specific @ -No Did you speak to anyone other than the patient for history (EMS, parent, family, police, friend...)? What history was obtained from this source @ -No Did you review nursing and triage notes (agree or disagree)? Why? @ -I reviewed and agree with nursing and triage notes Were old charts reviewed (outside hosp., previous admission, EMS record, old EKG, old radiological studies, urgent care reports/EKG's, usp records)? Report findings @ -Previous MRI report reviewed Differential Diagnosis (chest pain, altered mental status, abdominal pain women, abdominal pain men, vaginal bleeding, weakness, fever, dyspnea, syncope, headache, dizziness, GI bleed, back pain, seizure, CVA, palpatations, mental health, musculoskeletal)? @ -Differential Back Pain: Strain, zoster, cauda equina syndrome, epidural abscess, vertebral osteomyelitis, discitis, fracture, subluxation, disc herniation, DJD, spinal stenosis, dissection, AAA, pancreatitis, peptic ulcer disease, pyelonephritis, kidney stone, this is not meant to be an all-inclusive list. EKG interpreted by me (3pts min.). @ -As above X-rays interpreted by me (1pt min.). @ -None done CT interpreted by me (1pt min.). @ -None done U/S interpreted by me (1pt. min.). @ -None done What testing was considered but not performed or refused? (CT, X-rays, U/S, labs)? Why? @ -Considered imaging however this is a chronic problem for the patient with similar symptoms previously What meds were considered but not given or refused? Why? @ -None Did you discuss the management of the patient with other professionals (professionals i.e. , PA, [employer]OPEW[employer] ROPE MAKER, lab, RT, psych nurse, social welfare clerk, wire inspector, teacher, district fire management officer, manager of case management)? Give summary @ -No Was smoking cessation discussed for >3mins.? @ -No Was critical care preformed (if so, how long)? @ -No Were there social determinants of health that impacted care today? How? (Homelessness, low income, unemployed, alcoholism, drug addiction, transportation, low edu. Level, literacy, decrease access to med. care, fpc, rehab)? @ -No Was there de-escalation of care discussed even if they declined (Discuss DNR or withdrawal of care, Hospice)? DNR status @ -No What co-morbidities impacted this encounter? (DM, HTN, Smoking, COPD, CAD, Canc er, CVA, ARF, Chemo, Hep., AIDS, mental health diagnosis, sleep apnea, morbid obesity)? @ -Chronic low back pain Was patient admitted / discharged? Hospital course, mention meds given and route, prescriptions, significant lab abnormalities, going to OR and other pertinent info. @ -Patient presents with exacerbation of her low back pain. No weakness. No bowel or bladder dysfunction. No loss of sensation. Patient requests pain medication and discharge. Undiagnosed new problem with uncertain prognosis? @ -No Drug Therapy requiring intensive monitoring for toxicity (Heparin, Nitro, Insulin, Cardizem)? @ -No Were any procedures done? @ -No Diagnosis/symptom? @ -Low back pain Acute, or Chronic, or Acute on Chronic? @ -Acute Uncomplicated (without systemic symptoms) or Complicated (systemic symptoms)? @ -Default Side effects of treatment? @ -No Exacerbation, Progression, or Severe Exacerbation? @ -No Poses a threat to life or bodily function? How? (Chest pain, [place], [place], pneumonia, PE, COPD, DKA, ARF, appy, cholecystitis, CVA, Diverticulitis, Homicidal, Suicidal, threat to staff... and all critical care pts) @ -No Disposition Clinical Impression: Back pain Disposition: HOME SELF-CARE Condition: Stable Instructions (If sedation given, give patient instructions): Acute Low Back Pain (ED) Additional Instructions: Please do follow-up with your primary care physician in the next couple days for recheck. Return for increased pain, weakness, loss of control of bowel or bladder, fever, worsening or changing symptoms or other concerns. Is patient prescribed a controlled substance at d/c from ED?: No Referrals: Jessie Miller DO [Primary Care Provider] - 1-2 days Time of Disposition: 10:13
[2024-09-12] MEDS: KETOROLAC 15 MG/ML 1 ML VIAL IM STA (10:23)
[2024-09-12] MEDS: ORPHENADRINE 30 MG/ML 2 ML VIAL IM STA (10:25)
[2024-09-12 10:36] VITALS: BP 143/87; PULSE 79; RESP 18
== END 2024-09-12 10:36 | disposition home or self-care (01) ==
LOC: EC 09:31
DX: G89.29 Other chronic pain (principal); M54.50 Low back pain, unspecified; F17.200 Nicotine dependence, unspecified, uncomplicated; E78.5 Hyperlipidemia, unspecified
CPT/HCPCS: 99283; 96372; J2360; J1885

== ENCOUNTER → 2024-10-03 | Outpatient (CLI) | payer MEDICARE, OTHER ==
--- NOTE | 2024-10-03 10:17 | CTL ---
EXAMINATION TYPE: CT Low Dose Lung DATE OF EXAM ORDERED: 10/03/2024 COMPARISON: Prior chest CT April 18, 2023 and older studies CLINICAL INDICATION: Female, 64 years old with history of Z12.2 Screening; PHH, , Lung cancer screeni ng, History of Smoking/tobacco use. TECHNIQUE: Low dose computed tomography scan was performed through the chest at 1 mm thick sections a nd reconstructed images in multiple planes at 1 mm and [address] DLP: 107.[address] CTDI: 3.1 mGy Automated exposure control for dose reduction was used. CT DIAGNOSTIC QUALITY: Satisfactory FINDINGS: Nodules: A few scattered small nodules are redemonstrated. Some are noted for reference as detailed b elow. No new or enlarging greater than 6 mm pulmonary nodules. RUL: None. RML: None. RLL: Stable 3 mm peripheral right lower lobe nodule-160s. DANNY: Stable 5 mm left upper lobe nodule axial image 25. LLL: Stable 8 x 6 mm peripheral left lower lobe nodule image 202. LUNGS: COPD: Severity: Mild Fibrosis: Severity: Mild left basilar Lymph nodes: None Other findings: None RIGHT PLEURAL SPACE: Effusion: None Calcification: None Thickening: None Pneumothorax: None LEFT PLEURAL SPACE: Effusion: None Calcification: None Thickening: None Pneumothorax: None HEART: Heart Size: Normal Coronary Calcification: Mild Pericardial Effusion: None OTHER FINDINGS: Upper abdomen: None Bony thorax: Scoliosis Supraclavicular region: None Other: None IMPRESSION: Stable scattered small nodules. No new or enlarging greater than [address] LUNG RAD AND CT CHEST RECOMMENDATION: Lung-Rad 2 Benign Appearance or Behavior: Continue annual sc reening with LDCT in 12 months. S Modifier (other clinically significant findings): None [facility], , 10/03/2024 10:14 AM
== END | disposition home or self-care (01) ==
LOC: RADCTMAIN 09:39
PROVIDERS: ATTEND Family Medicine
DX: Z12.2 Encounter for screening for malignant neoplasm of respiratory organs (principal); R91.8 Other nonspecific abnormal finding of lung field; F17.210 Nicotine dependence, cigarettes, uncomplicated
CPT/HCPCS: 71271